=== PATIENT | male | born 2000 | race Caucasian/White ===

== ENCOUNTER 2018-03-16 14:16 | Emergency (ER) | payer OTHER ==
--- NOTE | 2018-03-16 15:38 | RAD REPORT ---
EXAM DESCRIPTION: RAD - Ankle Left 3 View - 03/16/2018 3:10 pm CLINICAL HISTORY: PAIN Swelling. COMPARISON: No comparisons FINDINGS: Soft tissue swelling is seen along the lateral malleolus. Small bony fragment seen in the region of the distal fibula is suspicious for an avulsion fracture.
--- NOTE | 2018-03-16 15:52 | EDPHYS ---
Physician Documentation [facility] Name: Brian Camejo Age: 17 yrs Sex: Male : 2000 Arrival Date: 03/16/2018 Time: 14:18 Bed 14 Private MD: ED Physician Jose Richardson HPI: 03/16 14:48 This 17 yrs old Male presents to ER via Ambulatory with complaints of Ankle cp Injury. 14:48 The patient presents with an injury, swelling, tenderness. The complaints affect the cp left ankle. Onset: The symptoms/episode began/occurred yesterday. Context: The patient can fully bear weight on the affected extremity. occurred while playing kick ball . Associated signs and symptoms: Pertinent negatives: calf tenderness, numbness, tingling, warmth, weakness. Modifying factors: the symptoms are aggravated by weight bearing. Historical: - Allergies: 14:29 No Known Allergies; ss - Home Meds: 14:29 escitalopram oxalate 10 mg oral tab 1 tab once daily [Active]; methylphenidate 27 mg ss Oral tr24 1 tab once daily [Active]; - PMHx: 14:29 ADD/ADHD; ss - PSHx: 14:29 None; ss - Immunization history:: Adult Immunizations up to date. - Social history:: Smoking status: Patient/guardian denies using tobacco. - Ebola Screening: : Patient denies exposure to infectious person Patient denies travel to an Ebola-affected area in the 21 days before illness onset. ROS: 14:50 Eyes: Negative for injury, pain, redness, and discharge. cp 14:50 Constitutional: Negative for body aches, chills, fever, poor PO intake. 14:50 ENT: Negative for drainage from ear(s), ear pain, sore throat, difficulty swallowing, difficulty handling secretions. 14:50 Cardiovascular: Negative for chest pain, palpitations. 14:50 Respiratory: Negative for cough, shortness of breath, wheezing. 14:50 Abdomen/GI: Negative for abdominal pain, nausea, vomiting, and diarrhea. 14:50 MS/extremity: Positive for pain, swelling, tenderness, of the left ankle. 14:50 Skin: Negative for cellulitis, rash. 14:50 Neuro: Negative for numbness, tingling. 14:50 All other systems are negative. Exam: 14:55 Constitutional: The patient appears in no acute distress, alert, awake, non-toxic, well cp developed, well nourished. 14:55 Head/Face: Normocephalic, atraumatic. cp 14:55 Eyes: Periorbital structures: appear normal, Conjunctiva: normal, no exudate, no injection, Lids and lashes: appear normal, bilaterally. 14:55 ENT: External ear(s): are unremarkable, Nose: is normal, Mouth: is normal, Posterior pharynx: is normal, airway is patent. 14:55 Chest/axilla: Inspection: normal. 14:55 Cardiovascular: Rate: normal. 14:55 Respiratory: the patient does not display signs of respiratory distress, Respirations: normal, no use of accessory muscles, no retractions, no splinting, no tachypnea. 14:55 Abdomen/GI: Exam negative for discomfort, distension, guarding, Inspection: abdomen appears normal. 14:55 Musculoskeletal/extremity: Extremities: grossly normal except: noted in the left lateral ankle: pain, swelling, tenderness, There is no evidence of decreased ROM, deformity, Achilles tendon palpated and intact, no tenderness noted at left proximal fibula or base of left fifth metatarsal. Vital Signs: 14:29 BP 138 / 81; Pulse 77; Resp 16; Temp 98.7(TE); Pulse Ox 100% on R/A; Weight 104.33 kg; ss Height 5 ft. 9 in. (175.26 cm); Pain 0/10; 15:25 BP 131 / 79; Pulse 82; Resp 17; Pulse Ox 99% on R/A; rb1 16:29 BP 125 / 76; Pulse 77; Resp 16; Pulse Ox 99% on R/A; rb1 14:29 Body Mass Index 33.96 (104.33 kg, 175.26 cm) Procedures: 16:45 Splinting: Splint applied to left ankle using Air Cast, applied by nurse. Examined by cp me, post splint application: neurovascular intact, Patient tolerated well. 16:45 Crutch training provided to patient and/or family. Return demonstration given. cp MDM: 14:30 Patient medically screened. cp 15:30 Differential diagnosis: fracture, sprain, dislocation. cp 15:50 Data reviewed: vital signs, nurses notes, radiologic studies, plain films, and as a cp result, I will discharge patient. 15:50 Test interpretation: by ED physician or midlevel provider: plain radiologic studies. cp Counseling: I had a detailed discussion with the patient and/or guardian regarding: the historical points, exam findings, and any diagnostic results supporting the discharge/admit diagnosis, radiology results, the need for outpatient follow up, a orthopedic surgeon, to return to the emergency department if symptoms worsen or persist or if there are any questions or concerns that arise at home. Response to treatment: the patient's symptoms have mildly improved after treatment, and as a result, I will discharge patient. 03/16 14:43 Order name: XRAY Ankle LEFT 3 view; Complete Time: 15:39 cp 03/16 15:33 Order name: Crutches; Complete Time: 16:49 cp 03/16 15:56 Order name: Aircast Ankle Splint; Complete Time: 16:48 cp Administered Medications: No medications were administered Disposition: 18:35 Co-signature as Attending Physician, Jose Richardson MD. Disposition: 03/16/18 15:51 Discharged to Home. Impression: Avulsion Fracture of Left Ankle. - Condition is Stable. - Discharge Instructions: Ankle Fracture. - Prescriptions for Naprosyn 500 mg Oral Tablet - take 1 tablet by ORAL route 2 times per day take with food; 20 tablet. - Medication Reconciliation Form, Thank You Letter, Antibiotic Education, Prescription Opioid Use form. - Follow up: Warren Machado MD; When: 1 week; Reason: Recheck today's complaints. - Problem is new. - Symptoms have improved. Signatures: Dispatcher [employer] EDMI Shandra Coreas RN RN ss Keyur Holden PA PA Sumi Obando RN RN rb1 Jose Richardson MD MD Corrections: (The following items were deleted from the chart) 15:41 15:33 Splint - Ankle: Aircast ordered. cp cp 15:55 15:41 Walking boot ordered. cp cp 16:50 15:51 03/16/2018 15:51 Discharged to Home. Impression: Avulsion Fracture of Left Ankle. rb1 Condition is Stable. Forms are Medication Reconciliation Form, Thank You Letter, Antibiotic Education, Prescription Opioid Use. Follow up: Warren Machado; When: 1 week; Reason: Recheck today's complaints. Problem is new. Symptoms have improved. cp 22:19 22:18 Splinting: cp cp
--- NOTE | 2018-03-16 15:52 | ER ---
Nurse's Notes [facility] Name: Brian Camejo Age: 17 yrs Sex: Male : 2000 Arrival Date: 03/16/2018 Time: 14:18 Bed 14 Private MD: Diagnosis: Avulsion Fracture of Left Ankle Presentation: 03/16 14:27 Presenting complaint: Patient states: L ankle pain and swelling that began yesterday ss after playing waterslide kickball. Pt reports swelling has decreased since yesterday. Transition of care: patient was not received from another setting of care. Onset of symptoms was March 15, 2018. Risk Assessment: Do you want to hurt yourself or someone else? Patient reports no desire to harm self or others. Initial Sepsis Screen: Does the patient meet any 2 criteria? No. Patient's initial sepsis screen is negative. Does the patient have a suspected source of infection? No. Patient's initial sepsis screen is negative. Care prior to arrival: None. 14:27 Method Of Arrival: Ambulatory ss 14:27 Acuity: SAMANTHA 4 ss Historical: - Allergies: 14:29 No Known Allergies; ss - Home Meds: 14:29 escitalopram oxalate 10 mg oral tab 1 tab once daily [Active]; methylphenidate 27 mg ss Oral tr24 1 tab once daily [Active]; - PMHx: 14:29 ADD/ADHD; ss - PSHx: 14:29 None; ss - Immunization history:: Adult Immunizations up to date. - Social history:: Smoking status: Patient/guardian denies using tobacco. - Ebola Screening: : Patient denies exposure to infectious person Patient denies travel to an Ebola-affected area in the 21 days before illness onset. Screenin:32 Abuse screen: Denies threats or abuse. Nutritional screening: No deficits noted. rb1 Tuberculosis screening: No symptoms or risk factors identified. Fall Risk None identified. Assessment: 14:32 General: Appears in no apparent distress. comfortable, Behavior is calm, cooperative. rb1 Pain: Complains of pain in left lateral ankle Pain currently is 8 out of 10 on a pain scale. Pain began 1 day ago. Aggravated by weight bearing. Neuro: Level of Consciousness is awake, alert, obeys commands, Oriented to person, place, time, situation. Cardiovascular: Capillary refill < 3 seconds is brisk in bilateral toes. Respiratory: Airway is patent Respiratory effort is even, unlabored, Respiratory pattern is regular, symmetrical. GI: No signs and/or symptoms were reported involving the gastrointestinal system. : No signs and/or symptoms were reported regarding the genitourinary system. Derm: Skin is pink, warm \T\ dry. Musculoskeletal: Range of motion: intact in all extremities, Swelling present in left lateral ankle. 15:30 Reassessment: Patient appears in no apparent distress at this time. Patient and/or rb1 family updated on plan of care and expected duration. Pain level reassessed. Patient is alert, oriented x 3, equal unlabored respirations, skin warm/dry/pink. mother at bedside. 16:30 Reassessment: Provider at bedside. Pt./Family asked to speak with someone in charge rb1 because they were upset that the hospital did not have the appropriate walking boot for the pt. to leave with. ZULEIKA Devi was notified and she will address the issue. 16:40 Reassessment: Spoke to patient and mother as requested by patient's mother. Mother was ss upset because she felt as if the facility is not equipped with appropriate supplies to treat patient's condition. Educated mother that air/ gel cast splint that was ordered initially, supply had dwindled quickly this morning as there were many patients that needed this particular item. cloth bleaching supervisor, Marianne notified and was seeking more in materials storage and brought additional aircasts and was quickly applied to L ankle as ordered. Patient requested that mother sign duramedic forms for crutches and aircast splint. Pt and mother were grateful for care received upon discharge home. Vital Signs: 14:29 BP 138 / 81; Pulse 77; Resp 16; Temp 98.7(TE); Pulse Ox 100% on R/A; Weight 104.33 kg; ss Height 5 ft. 9 in. (175.26 cm); Pain 0/10; 15:25 BP 131 / 79; Pulse 82; Resp 17; Pulse Ox 99% on R/A; rb1 16:29 BP 125 / 76; Pulse 77; Resp 16; Pulse Ox 99% on R/A; rb1 14:29 Body Mass Index 33.96 (104.33 kg, 175.26 cm) ED Course: 14:18 Patient arrived in ED. as 14:28 Triage completed. ss 14:29 Arm band placed on left wrist. ss 14:30 Keyur Holden PA is PHCP. cp 14:30 Jose Richardson MD is Attending Physician. cp 14:32 Patient has correct armband on for positive identification. Bed in low position. Call rb1 light in reach. Side rails up X 1. Pulse ox on. NIBP on. 14:35 Sumi Herron, RN is Primary Nurse. rb1 15:08 X-ray completed. Portable x-ray completed in exam room. Patient tolerated procedure la2 well. 15:09 XRAY Ankle LEFT 3 view In Process Unspecified. EDMS 15:49 Warren Machado MD is Referral Physician. cp 16:48 No provider procedures requiring assistance completed. Patient did not have IV access ss during this emergency room visit. Crutch training done. Air stirrup applied to left ankle. (gel splint). Administered Medications: No medications were administered Outcome: 15:51 Discharge ordered by MD. cp 16:48 Discharged to home ambulatory, with family. ss 16:48 Condition: good 16:48 Discharge instructions given to patient, family, Instructed on discharge instructions, follow up and referral plans. medication usage, Demonstrated understanding of instructions, follow-up care, medications, Prescriptions given X 2, (walking boot) 16:50 Patient left the ED. rb1 Signatures: Dispatcher [employer] EDNJ Chioma King Shelby, RN RN Keyur Holden PA PA cp Sumi Herron, RN RN rb1 Yolanda Gonsalves la2
== END 2018-03-16 16:50 | disposition home or self-care (01) ==
LOC: ER 14:16
DX: S82.892A Other fracture of left lower leg, initial encounter for closed fracture (principal); X58.XXXA Exposure to other specified factors, initial encounter; Y93.6A Activity, physical games generally associated with school recess, summer camp and children; Y92.9 Unspecified place or not applicable; F90.9 Attention-deficit hyperactivity disorder, unspecified type
CPT/HCPCS: 99284

== ENCOUNTER 2024-01-28 19:03 | Emergency (ER) | payer SELFPAY ==
[2024-01-28] MEDS ORDERED: ONDANSETRON 4 MG/2 ML VIAL ONE (19:44)
[2024-01-28] MEDS ORDERED: DICYCLOMINE HCL 10 MG CAP ONE (19:44)
[2024-01-28] MEDS ORDERED: NA CHLORIDE 0.9% 1,000 ML ONE (19:44)
[2024-01-28 20:13] LABS: Absolute Basophils 0.1 K/uL (0-0.5); Absolute Eosinophils 0.3 K/uL (0-0.5); Absolute Neutrophil 7.5 K/uL (1.8-8.0); Eosinophils % 2.8 % (0-4.4); Hematocrit 45.9 % (39.6-49.0); Hemoglobin 15.6 g/dL (13.6-17.9); Lymphocytes % 24.9 % (15.3-44.8); MCH 29.7 pg (27.0-35.0); MCHC 33.9 g/dL (32.0-36.0); MCV 87.7 fL (80-100); MPV 7.9 fL (7.6-11.3); Monocytes % 8.6 % (3.3-12.3); Neutrophils % 62.7 % (41.7-73.7); Nucleated Red Blood Cells % 0.2 % (0-0); Platelets 289 thou/uL (152-406); RBC Red Blood Cell Count 5.24 M/uL (4.33-5.43); Red Cell Distribution Width 13.9 % (12.1-15.2)
[2024-01-28 20:30] LABS: Specific Gravity 1.022 (1.005-1.030); Sqamous Epithelial None Seen /HPF (None Seen); Urine Bacteria None Seen /HPF (<20); Urine Bilirubin NEGATIVE (Negative); Urine Blood Negative (Negative); Urine Clarity Extremely Turbid (Clear); Urine Color Light-Orange (Yellow); Urine Culture Reflex Order REFLEXED; Urine Glucose NEGATIVE (Negative); Urine Ketones NEGATIVE (Negative); Urine Microscopic Reflex YN ORDER UMIC; Urine Mucus Slight /HPF (None Seen); Urine Nitrite NEGATIVE (Negative); Urine Protein TRACE (Negative); Urine RBC <5 /HPF (None Seen); Urine Urobilinogen Normal (Normal)
[2024-01-28 20:44] LABS: Albumin 4.1 g/dL (3.4-5.0); Anion Gap 7.6 mEq/L (5.0-15.0); Bilirubin Total 0.3 mg/dL (0.2-1.0); Potassium 3.6 mEq/L (3.5-5.1); Protein, Total 8.1 g/dL (6.4-8.2)
--- NOTE | 2024-01-28 21:37 | ER ---
Nurse's Notes [facility] Name: Brian Camejo Age: 23 yrs Sex: Male : 2000 Arrival Date: 01/28/2024 Time: 19:03 Bed 11 Private MD: Diagnosis: Nausea with vomiting, unspecified Presentation: 01/27 19:18 Chief complaint: Patient states: VOMITING STARTED LAST NIGHT. GOT DIZZY AND FALL.. jj7 Coronavirus screen: At this time, the client does not indicate any symptoms associated with coronavirus-19. Ebola Screen: No symptoms or risks identified at this time. Initial Sepsis Screen: Does the patient meet any 2 criteria? No. Patient's initial sepsis screen is negative. Does the patient have a suspected source of infection? No. Patient's initial sepsis screen is negative. Risk Assessment: Do you want to hurt yourself or someone else? Patient reports no desire to harm self or others. Onset of symptoms was January 27, 2024. 19:18 Method Of Arrival: Ambulatory [facility] 19:18 Acuity: SAMANTHA 3 jj7 Triage Assessment: 19:22 General: Appears in no apparent distress. comfortable, Behavior is calm, cooperative, jj7 appropriate for age. Pain: Denies pain. GI: Reports nausea, vomiting. Historical: - Allergies: 19:22 No Known Allergies; jj7 - PMHx: 19:22 ADD/ADHD; jj7 - PSHx: 19:22 None; jj7 - Immunization history:: Adult Immunizations not up to date, Client reports having NOT received the Covid vaccine. Flu vaccine is not up to date. - Infectious Disease History:: Denies. - Social history:: Smoking status: Reported history of juuling and/or vaping. Patient uses alcohol, occasionally. street drugs, marijuana, Patient/guardian denies using street drugs, IV drugs. Screenin:23 [facility] ED Fall Risk Assessment (Adult) History of falling in the last 3 months, jj7 including since admission Yes- single mechanical fall (1 pt) Confusion or Disorientation No (0 pts) Intoxicated or Sedated No (0 pts) Impaired Gait No (0 pts) Mobility Assist Device Used No (0 pt) Altered Elimination No (0 pt) Score/Fall Risk Level 0 - 2 = Low Risk Oriented to surroundings, Maintained a safe environment, Educated pt \T\ family on fall prevention, incl call for assistance when getting out of bed. Abuse screen: Denies threats or abuse. Nutritional screening: No deficits noted. Tuberculosis screening: No symptoms or risk factors identified. Assessment: 21:49 Reassessment: Patient and/or family updated on plan of care and expected duration. Pain vc1 level reassessed. Patient is alert, oriented x 3, equal unlabored respirations, skin warm/dry/pink. Patient states feeling better. Patient states symptoms have improved. 21:51 General: Appears in no apparent distress. uncomfortable, Behavior is calm, cooperative, vc1 appropriate for age. Pain: Complains of pain in abdomen Pain does not radiate. Also complains of nausea, vomiting. Neuro: Level of Consciousness is awake, alert, obeys commands, Oriented to person, place, time, situation, Appropriate for age. Cardiovascular: No deficits noted. Respiratory: Airway is patent Respiratory effort is even, unlabored, Respiratory pattern is regular, symmetrical. GI: Bowel sounds present X 4 quads. Abd is soft Abdomen is tender to palpation. Vital Signs: 19:18 BP 150 / 82; Pulse 78; Resp 17; Temp 98.3; Pulse Ox 100% ; Weight 113.4 kg; Height 5 jj7 ft. 9 in. ; 21:49 BP 114 / 58; Pulse 74; Resp 17; Temp 98.4; Pulse Ox 100% ; vc1 19:18 Body Mass Index 36.92 (113.40 kg, 175.26 cm) jj7 ED Course: 19:06 Patient arrived in ED. mr 19:07 Brandi Jose FNP-C [facility]. kb 19:07 Keyur Page MD is Attending Physician. kb 19:22 Triage completed. jj7 19:22 Arm band placed on right wrist. jj7 19:35 Patient has correct armband on for positive identification. Pulse ox on. NIBP on. vc1 19:55 Initial lab(s) drawn, by me, sent to lab. Inserted saline lock: 20 gauge in right hand, jj7 using aseptic technique. Blood collected. 20:02 CBC with Diff Sent. jj7 20:02 CMP Sent. jj7 20:02 Lipase Sent. jj7 20:02 Urinalysis w/ reflexes Sent. jj7 21:50 No provider procedures requiring assistance completed. IV discontinued, intact, vc1 bleeding controlled, No redness/swelling at site. Pressure dressing applied. 21:53 Provided Education on: PO medications. vc1 Administered Medications: 20:02 Drug: NS 0.9% IV 1000 ml IV at 1 bolus Per protocol; 1000 mL bolus Route: IV; Rate: 1 jj7 bolus; Site: right hand; 20:02 Drug: Ondansetron IVP 4 mg IVP once; over 2 minutes Route: IVP; Site: right hand; jj7 20:02 Drug: Dicyclomine PO 20 mg PO once Route: PO; jj7 Medication: 21:52 VIS not applicable for this client. vc1 Outcome: 21:36 Discharge ordered by . beti 21:53 Discharged to home ambulatory, vc1 21:53 Condition: good 21:53 Discharge instructions given to patient, Instructed on discharge instructions, follow up and referral plans. medication usage, Demonstrated understanding of instructions, follow-up care, medications, Prescriptions given X 2, 21:53 Patient left the ED. vc1 Signatures: Brandi Jose, FULL DECATOR OPERATOR-C FULL DECATOR OPERATOR-Ckb Sara Ortiz, Reg Reg mr Erika Jung RN RN vc1 Joi Barger RN RN jj7
--- NOTE | 2024-01-28 21:37 | EDPHYS ---
Physician Documentation [facility] Name: Brian Camejo Age: 23 yrs Sex: Male : 2000 Arrival Date: 01/28/2024 Time: 19:03 Bed 11 Private MD: ED Physician Keyur Page HPI: 01/27 19:18 This 23 yrs old Male presents to ER via Unassigned with complaints of Abdominal Pain, kb Nausea/Vomiting, Dizziness. 19:18 Pt is a 23 year old male who presents for nausea, vomiting that started at 0200 with kb dizziness when he bends over. Denies diarrhea, fever. . Historical: - Allergies: 19:22 No Known Allergies; jj7 - PMHx: 19:22 ADD/ADHD; jj7 - PSHx: 19:22 None; jj7 - Immunization history:: Adult Immunizations not up to date, Client reports having NOT received the Covid vaccine. Flu vaccine is not up to date. - Infectious Disease History:: Denies. - Social history:: Smoking status: Reported history of juuling and/or vaping. Patient uses alcohol, occasionally. street drugs, marijuana, Patient/guardian denies using street drugs, IV drugs. ROS: 19:18 Constitutional: As per HPI kb Exam: 19:18 Constitutional: This is a well developed, well nourished patient who is awake, alert, kb and in no acute distress. Head/Face: Normocephalic, atraumatic. ENT: Moist Mucous membranes Cardiovascular: Regular rate Respiratory: Respirations even and unlabored. No increased work of breathing. Talking in full sentences Abdomen/GI: Soft, non-tender. No distention Skin: Warm, dry with normal turgor. Normal color. MS/ Extremity: Pulses equal, no cyanosis. Neurovascular intact. Full, normal range of motion. Neuro: Awake and alert, GCS 15, oriented to person, place, time, and situation. Moves all extremities. Normal gait. Vital Signs: 19:18 BP 150 / 82; Pulse 78; Resp 17; Temp 98.3; Pulse Ox 100% ; Weight 113.4 kg; Height 5 jj7 ft. 9 in. ; 21:49 BP 114 / 58; Pulse 74; Resp 17; Temp 98.4; Pulse Ox 100% ; vc1 19:18 Body Mass Index 36.92 (113.40 kg, 175.26 cm) jj7 MDM: 19:08 Patient medically screened. kb 21:02 Data reviewed: vital signs, nurses notes. kb 21:35 Differential diagnosis: gastritis, non-specific abd pain, pancreatitis, dehydration, kb abnormal electrolytes. Counseling: I had a detailed discussion with the patient and/or guardian regarding the historical points, exam findings, and any diagnostic results supporting the discharge/admit diagnosis, lab results, the need for outpatient follow up, a family practitioner, to return to the emergency department if symptoms worsen or persist or if there are any questions or concerns that arise at home. 01/27 20:10 Order name: Comprehensive Metabolic Panel EDIN 01/27 20:10 Order name: Lipase EDIN 01/27 20:10 Order name: CBC with Automated Diff EDIN 01/27 20:10 Order name: Urinalysis w/ reflexes EDIN 01/27 20:15 Order name: CBC with Automated Diff; Complete Time: 20:19 EDIN 01/27 20:34 Order name: Urinalysis w/ reflexes; Complete Time: 20:39 EDMS 01/27 20:38 Order name: Urine Culture EDIN 01/27 20:44 Order name: Comprehensive Metabolic Panel; Complete Time: 20:48 EDMS 01/27 20:44 Order name: Lipase; Complete Time: 20:48 EDIN 01/27 19:21 Order name: IV Saline Lock; Complete Time: 20:02 kb 01/27 19:21 Order name: Labs collected and sent; Complete Time: 20:02 kb 01/27 21:02 Order name: PO challenge; Complete Time: 21:43 kb Administered Medications: 20:02 Drug: NS 0.9% IV 1000 ml IV at 1 bolus Per protocol; 1000 mL bolus Route: IV; Rate: 1 jj7 bolus; Site: right hand; 20:02 Drug: Ondansetron IVP 4 mg IVP once; over 2 minutes Route: IVP; Site: right hand; jj7 20:02 Drug: Dicyclomine PO 20 mg PO once Route: PO; jj7 Disposition Summary: 01/28/24 21:36 Discharge Ordered Notes: Location: Home kb Condition: Stable kb Diagnosis - Nausea with vomiting, unspecified kb Followup: kb - With: Emergency Department - When: As needed - Reason: Worsening of condition Followup: kb - With: Private Physician - When: 2 - 3 days - Reason: Recheck today's complaints, Continuance of care, Re-evaluation by your physician Discharge Instructions: - Discharge Summary Sheet kb - Nausea and Vomiting, Adult, [id number] kb Forms: - Medication Reconciliation Form kb - Antibiotic Education kb - Prescription Opioid Use kb - Patient Portal Instructions kb - Leadership Thank You Letter kb Prescriptions: - Zofran 4 mg Oral tablet - take 1 tablet ORAL route every 6 hours As needed; 12 tablet; Refills: 0, kb Product Selection Permitted - dicyclomine 20 mg Oral tablet - take 1 tablet ORAL route 4 times per day As needed; 12 tablet; Refills: 0, kb Product Selection Permitted Signatures: Dispatcher [employer] Brandi Elizabeth FNP-C FNP-Ckb Johnson, Juwairiyah RN RN jj7
[2024-01-28 22:15] VITALS: BP 150/82; TEMP 98.3; O2SAT 100
== END 2024-01-28 21:53 | disposition home or self-care (01) ==
LOC: ER 19:03
DX: R11.2 Nausea with vomiting, unspecified (principal)
CPT/HCPCS: 36415; 80053; 81001; 83690; 85025; 87086; 87088; 96374; 99284; J2405; J7030